=== PATIENT | male | born 1975 | race Caucasian/White ===

== ENCOUNTER 2019-10-13 11:08 | Emergency (ER) | payer MEDICAID ==
[~2019-10-13] VITALS: Ht 175.3 cm; Wt 88.0 kg
[2019-10-13 11:16] VITALS: BP 127/81
[2019-10-13] MEDS ORDERED: morphine 4 MG/ML inj SYRINge IV PRN (11:35)
[2019-10-13] MEDS ORDERED: ondansetron/PF 4mg/2ml inj IV ONE (11:35)
[2019-10-13] MEDS ORDERED: normal saline 1000ML IV soln IVB ONE (11:35)
[2019-10-13 11:55] LABS: BASOPHILS # (AUTO) 0.1 X10'3 (0-0.2); BASOPHILS % (AUTO) 0.8 % (0-1); EOSINOPHILS # (AUTO) 0.2 X10'3 (0-0.9); EOSINOPHILS % (AUTO) 1.7 % (0-6); HEMATOCRIT 42.6 % (42.0-52.0); HEMOGLOBIN 14.7 g/dl (14.0-17.9); LYMPHOCYTES # (AUTO) 2.5 X10'3 (1.1-4.8); LYMPHOCYTES % (AUTO) 27.3 % (21-51); MEAN CORPUSCULAR HEMOGLOBIN 30.8 PG (27.0-31.0); MEAN CORPUSCULAR HGB CONC 34.5 g/dL (33.0-36.5); MEAN CORPUSCULAR VOLUME 89.3 FL (78-98); MEAN PLATELET VOLUME 8.5 FL (7.4-10.4); MONOCYTES # (AUTO) 0.8 X10'3 (0-0.9); MONOCYTES % (AUTO) 8.8 % (2-12); NEUTROPHILS # (AUTO) 5.6 X10'3 (1.8-7.7); NEUTROPHILS % (AUTO) 61.4 % (42-75); PLATELET COUNT 243 X10'3 (140-440); RED BLOOD COUNT 4.77 X10'6 (4.70-6.10); RED CELL DISTRIBUTION WIDTH 13.3 % (11.5-14.5); WHITE BLOOD COUNT 9.1 X10'3 (4.5-11.0)
[2019-10-13] MEDS ORDERED: proCHLORperazine 10 MG/2 ml inj IV ONE (12:05)
[2019-10-13] MEDS ORDERED: gabapentin 300mg capsule PO ONE (12:05)
[2019-10-13 12:09] LABS: ALANINE AMINOTRANSFERASE 37 U/L (12-78); ALBUMIN 3.4 G/DL (3.4-5.0); ALKALINE PHOSPHATASE 86 IU/L (46-116); ANION GAP 7 (8-16); ASPARTATE AMINO TRANSFERASE 18 U/L (10-37); BILIRUBIN,TOTAL 0.3 MG/DL (0.1-1.0); BLOOD UREA NITROGEN 10 MG/DL (7-18); BUN/CREATININE RATIO 9.7 (5.4-32.0); CALCIUM 8.5 MG/DL (8.5-10.1); CHLORIDE 109 MMOL/L (99-107); CREATININE 1.03 MG/DL (0.60-1.10); GLUCOSE 90 MG/DL (70-104); LIPASE 122 U/L (73-393); POTASSIUM 3.6 MMOL/L (3.5-5.1); SODIUM 143 MMOL/L (135-145); TOTAL PROTEIN 6.8 G/DL (6.4-8.2); eGFR 78 ML/MIN
[2019-10-13] MEDS ORDERED: HYDROmorphone 1 mg/ml syringe IV ONE (12:25)
[2019-10-13 12:29] LABS: CLARITY,URINE CLEAR (Clear); COLOR,URINE YELLOW (Yellow); GLUCOSE, URINE NEGATIVE (Neg); KETONES,URINE NEGATIVE (Neg); LEUKOCYTE ESTERASE ,URINE NEGATIVE (Neg); NITRITES, URINE NEGATIVE (Neg); OCCULT BLOOD,URINE NEGATIVE (Neg); PROTEIN,URINE NEGATIVE (Neg); UA COLLECTION TYPE CLN CATCH MIDSTREAM; UROBILINOGEN,URINE 0.2 E.U/dL (0.2-1.0)
== END 2019-10-13 13:12 | disposition home or self-care (01) ==
LOC: ER 11:09
DX: R10.11 Right upper quadrant pain (principal); R10.12 Left upper quadrant pain; R10.31 Right lower quadrant pain; R10.32 Left lower quadrant pain
CPT/HCPCS: 36415; 74176; 80053; 81003; 83690; 85025; 93005; 96374; 96375; 99284; J0780; J1170; J2270; J2405; J7030

== ENCOUNTER 2021-04-01 17:02 | Emergency (ER) | payer MEDICAID ==
[~2021-04-01] VITALS: Ht 175.3 cm; Wt 81.3 kg
[2021-04-01 18:02] VITALS: BP 125/85
[2021-04-01 20:31] LABS: BASOPHILS # (AUTO) 0.1 X10'3 (0-0.2); EOSINOPHILS # (AUTO) 0.2 X10'3 (0-0.9); EOSINOPHILS % (AUTO) 1.9 % (0-6); HEMATOCRIT 46.2 % (42.0-52.0); LYMPHOCYTES # (AUTO) 2.9 X10'3 (1.1-4.8); LYMPHOCYTES % (AUTO) 34.8 % (21-51); MEAN CORPUSCULAR HEMOGLOBIN 31.7 PG (27.0-31.0); MEAN CORPUSCULAR HGB CONC 34.7 g/dL (33.0-36.5); MEAN CORPUSCULAR VOLUME 91.4 FL (78-98); MEAN PLATELET VOLUME 8.7 FL (7.4-10.4); MONOCYTES # (AUTO) 0.8 X10'3 (0-0.9); MONOCYTES % (AUTO) 10.2 % (2-12); NEUTROPHILS # (AUTO) 4.4 X10'3 (1.8-7.7); NEUTROPHILS % (AUTO) 52.1 % (42-75); PLATELET COUNT 229 X10'3 (140-440); RED BLOOD COUNT 5.05 X10'6 (4.70-6.10); WHITE BLOOD COUNT 8.4 X10'3 (4.5-11.0)
[2021-04-01 20:33] LABS: ALANINE AMINOTRANSFERASE 28 U/L (12-78); ALBUMIN 3.7 G/DL (3.4-5.0); ALKALINE PHOSPHATASE 81 IU/L (46-116); ANION GAP 10 (8-16); ASPARTATE AMINO TRANSFERASE 22 U/L (10-37); BILIRUBIN,TOTAL 0.4 MG/DL (0.1-1.0); BLOOD UREA NITROGEN 13 MG/DL (7-18); BUN/CREATININE RATIO 13.4 (5.4-32.0); CALCIUM 8.8 MG/DL (8.5-10.1); CHLORIDE 104 MMOL/L (99-107); CREATININE 0.97 MG/DL (0.60-1.10); GLUCOSE 96 MG/DL (70-104); LIPASE 129 U/L (73-393); POTASSIUM 4.1 MMOL/L (3.5-5.1); SODIUM 138 MMOL/L (135-145); TOTAL CARBON DIOXIDE 23.8 MMOL/L (24-32); TOTAL PROTEIN 7.5 G/DL (6.4-8.2); eGFR 83 ML/MIN
[2021-04-01 20:43] LABS: CLARITY,URINE CLEAR (Clear); COLOR,URINE YELLOW (Yellow); GLUCOSE, URINE NEGATIVE (Neg); KETONES,URINE TRACE mg/dl (Neg); LEUKOCYTE ESTERASE ,URINE NEGATIVE (Neg); NITRITES, URINE NEGATIVE (Neg); OCCULT BLOOD,URINE NEGATIVE (Neg); PROTEIN,URINE NEGATIVE (Neg); UROBILINOGEN,URINE 0.2 E.U/dL (0.2-1.0)
[2021-04-01 20:55] LABS: UA COLLECTION TYPE CLN CATCH MIDSTREAM
[2021-04-01] MEDS ORDERED: LIDOcaine Viscous 15ml cup MM ONE (21:25)
[2021-04-01] MEDS ORDERED: mag hydrox/Alum hydrox/simeth 30ml oral suspension PO ONE (21:25)
[2021-04-01] MEDS ORDERED: sucralfate 1gm/10ml UD suspension PO STA (21:25)
[2021-04-01] MEDS ORDERED: DEXL30CA3 PO (21:37)
[2021-04-01] MEDS ORDERED: SUCR1TAB34 PO (21:37)
== END 2021-04-01 22:10 | disposition home or self-care (01) ==
LOC: ER 17:03
DX: R10.84 Generalized abdominal pain (principal); R53.83 Other fatigue; R50.9 Fever, unspecified; R11.0 Nausea; M54.5 Low back pain; G89.29 Other chronic pain; Z79.899 Other long term (current) drug therapy
CPT/HCPCS: 36415; 80053; 81003; 83690; 85025; 99284

== ENCOUNTER 2021-12-13 00:55 | Inpatient (IN) | payer MEDICAID ==
[~2021-12-13] VITALS: Ht 175.3 cm; Wt 79.5 kg
[~2021-12-13 00:55] MED LIST: DEXL30CA3 PO; SUCR1TAB34 PO
--- NOTE | 2021-12-13 01:12 | NUR ---
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 OF NOW HE IS NOW AT A 5/10
--- NOTE | 2021-12-13 01:13 | NUR ---
XRAY AT BEDSIDE
--- NOTE | 2021-12-13 01:13 | NUR ---
BLOOD SENT TO LAB
[2021-12-13] MEDS ORDERED: aspirin 325mg tablet PO ONE (01:35)
[2021-12-13 01:36] LABS: BASOPHILS # (AUTO) 0.1 X10'3 (0-0.2); BASOPHILS % (AUTO) 1.2 % (0-1); EOSINOPHILS # (AUTO) 0.1 X10'3 (0-0.9); EOSINOPHILS % (AUTO) 1.2 % (0-6); HEMATOCRIT 43.1 % (42.0-52.0); HEMOGLOBIN 15.3 g/dl (14.0-17.9); LYMPHOCYTES # (AUTO) 3.6 X10'3 (1.1-4.8); LYMPHOCYTES % (AUTO) 33.4 % (21-51); MEAN CORPUSCULAR HEMOGLOBIN 31.2 PG (27.0-31.0); MEAN CORPUSCULAR HGB CONC 35.4 g/dL (33.0-36.5); MEAN CORPUSCULAR VOLUME 88.1 FL (78-98); MONOCYTES # (AUTO) 1.2 X10'3 (0-0.9); MONOCYTES % (AUTO) 11.4 % (2-12); NEUTROPHILS # (AUTO) 5.6 X10'3 (1.8-7.7); NEUTROPHILS % (AUTO) 52.8 % (42-75); PLATELET COUNT 239 X10'3 (140-440); RED BLOOD COUNT 4.89 X10'6 (4.70-6.10); RED CELL DISTRIBUTION WIDTH 13.1 % (11.5-14.5); WHITE BLOOD COUNT 10.7 X10'3 (4.5-11.0)
[2021-12-13 01:43] LABS: ALANINE AMINOTRANSFERASE 28 U/L (12-78); ALBUMIN 3.9 G/DL (3.4-5.0); ALBUMIN/GLOBULIN RATIO 1.1 (1.1-1.5); ALKALINE PHOSPHATASE 87 IU/L (46-116); ANION GAP 10 (8-16); ASPARTATE AMINO TRANSFERASE 22 U/L (10-37); BILIRUBIN,TOTAL 0.4 MG/DL (0.1-1.0); BLOOD UREA NITROGEN 17 MG/DL (7-18); BUN/CREATININE RATIO 16.7 (5.4-32.0); CHLORIDE 103 MMOL/L (99-107); CREATININE 1.02 MG/DL (0.60-1.10); GLUCOSE 101 MG/DL (70-104); POTASSIUM 3.6 MMOL/L (3.5-5.1); SODIUM 136 MMOL/L (135-145); TOTAL CARBON DIOXIDE 22.6 MMOL/L (24-32); TOTAL PROTEIN 7.6 G/DL (6.4-8.2); eGFR 78 ML/MIN
[2021-12-13 01:52] LABS: MAGNESIUM 1.8 MG/DL (1.5-2.4)
--- NOTE | 2021-12-13 02:30 | NUR ---
ASSUMED CARE OF PATIENT. A+OX4. SKIN WARM AND DRY. ADMITTED AND AWAITING ROOM, 3RD TROP IN 3HRS.
[2021-12-13] MEDS ORDERED: morphine 2 MG/ML inj. syringe IV PRN (03:30)
[2021-12-13] MEDS ORDERED: potassium Cl 20 mEq SR tablet PO PRN ×2 (03:30)
[2021-12-13] MEDS ORDERED: magnesium 4gm in 100ml NS 100 ML IV PRN (03:30)
[2021-12-13] MEDS ORDERED: ondansetron/PF 4mg/2ml inj IV PRN (03:30)
[2021-12-13] MEDS ORDERED: potassium CL 10mEq/100ml bag 100 ML IV PRN (03:30)
[2021-12-13] MEDS ORDERED: HYDROcodone/acetaminophen 5mg/325mg tablet PO PRN (03:30)
[2021-12-13] MEDS ORDERED: mag hydrox/Alum hydrox/simeth 30ml oral suspension PO PRN (03:30)
[2021-12-13] MEDS ORDERED: acetaminophen 325mg tablet PO PRN ×2 (03:30)
[2021-12-13] MEDS ORDERED: magnesium 2GM in 50ml NS 50 ML IV PRN (03:30)
[2021-12-13] MEDS ORDERED: magnesium Cl slow-release 64mg tablet PO PRN (03:30)
--- NOTE | 2021-12-13 04:00 | NUR ---
PATIENT ASLEEP IN ROOM, CHEST RISE AND FALL, STILL AWAITING ROOM AND ORDERS. HOSPITALIST SEEING PATIENT NOW
[2021-12-13] MEDS ORDERED: CefTRIAXone 2gm/D5W 50ml BAG 50 ML IV ONE (04:30)
[2021-12-13] MEDS: K and/or MAG REPLACEMENT MC SCH ×2 (07:57→20:00)
--- NOTE | 2021-12-13 08:30 | NUR ---
Pt not going to have Blanca scan until tomorrow per Nuc Med tech. Hospitalist paged for diet order.
[2021-12-13] MEDS: normal saline 1000ml 1,000 ML IV SCH ×2 (08:31→17:48)
[2021-12-13] MEDS: heparin, porcine 5000 units/ml vial SQ SCH ×2 (08:32→20:00)
--- NOTE | 2021-12-13 11:01 | NUR ---
DR. PEREZ CALLED, BONIFACIO INFORMED HIM LEXISCAN CANNOT BE DONE TODAY. NEW ORDERS: HEART HEALTHY DIET, NPO AFTER MN FOR LEXISCAN TOMORROW.
[2021-12-13 12:26] LABS: CLARITY,URINE CLEAR (Clear); COLOR,URINE YELLOW (Yellow); GLUCOSE, URINE NEGATIVE (Neg); KETONES,URINE TRACE mg/dl (Neg); LEUKOCYTE ESTERASE ,URINE NEGATIVE (Neg); NITRITES, URINE NEGATIVE (Neg); OCCULT BLOOD,URINE NEGATIVE (Neg); PROTEIN,URINE NEGATIVE (Neg); UROBILINOGEN,URINE 0.2 E.U/dL (0.2-1.0)
[2021-12-13 12:29] LABS: UA COLLECTION TYPE CLN CATCH MIDSTREAM
[2021-12-13 12:38] LABS: URINE AMPHETAMINE SCREEN NEGATIVE (Neg); URINE BARBITUATE SCREEN NEGATIVE (Neg); URINE BENZODIAZEPINES SCREEN NEGATIVE (Neg); URINE CANNABINOID SCREEN POSITIVE (Neg); URINE COCAINE SCREEN NEGATIVE (Neg); URINE METHADONE SCREEN NEGATIVE (Neg); URINE OPIATE SCREEN NEGATIVE (Neg); URINE PHENCYCLIDINE SCREEN NEGATIVE (Neg)
[2021-12-13] MEDS ORDERED: IBUP-1985 PO (13:06)
[2021-12-13] MEDS ORDERED: OMEP20CA16 PO (13:06)
[2021-12-13 16:19] VITALS: BP 112/67
--- NOTE | 2021-12-13 16:31 | NUR ---
Patient admitted from ER accompanied by 2 nurses. Patient AAOx4. no distress noted at this time , patient denied pain at this moment. VS at normal range.
--- NOTE | 2021-12-13 18:59 | NUR ---
Patient in room MED 312. I have received report from Rubi GAINES and had the opportunity to ask questions and assume patient care. Addendum: 12/13/21 at 1900 by Stephanie Miramontes RN Amended: Links added.
--- NOTE | 2021-12-13 19:45 | NUR ---
Problems reprioritized. Patient report given, questions answered & plan of care reviewed with LIANA GUILLERMO
[2021-12-13 20:00] VITALS: BP 100/64
[2021-12-13] MEDS ORDERED: temazepam 15mg capsule PO PRN (21:00)
[2021-12-13 22:00] VITALS: BP 101/68
[2021-12-14] VITALS (12 sets, daily range): BP systolic 102–127; BP diastolic 57–77
[2021-12-14] MEDS: normal saline 1000ml 1,000 ML IV SCH ×2 (03:01→19:03)
[2021-12-14 06:22] LABS: BASOPHILS # (AUTO) 0.1 X10'3 (0-0.2); EOSINOPHILS # (AUTO) 0.1 X10'3 (0-0.9); MEAN CORPUSCULAR HEMOGLOBIN 31.1 PG (27.0-31.0); MEAN CORPUSCULAR HGB CONC 34.8 g/dL (33.0-36.5); MEAN PLATELET VOLUME 8.7 FL (7.4-10.4); MONOCYTES # (AUTO) 0.6 X10'3 (0-0.9); MONOCYTES % (AUTO) 11.5 % (2-12); PLATELET COUNT 203 X10'3 (140-440)
[2021-12-14 06:25] LABS: BASOPHILS % (AUTO) 1.1 % (0-1); EOSINOPHILS % (AUTO) 1.8 % (0-6); HEMOGLOBIN 14.6 g/dl (14.0-17.9); LYMPHOCYTES # (AUTO) 1.8 X10'3 (1.1-4.8); LYMPHOCYTES % (AUTO) 33.1 % (21-51); MEAN CORPUSCULAR VOLUME 89.6 FL (78-98); NEUTROPHILS # (AUTO) 2.9 X10'3 (1.8-7.7); NEUTROPHILS % (AUTO) 52.5 % (42-75); RED BLOOD COUNT 4.69 X10'6 (4.70-6.10); RED CELL DISTRIBUTION WIDTH 13.1 % (11.5-14.5); WHITE BLOOD COUNT 5.6 X10'3 (4.5-11.0)
--- NOTE | 2021-12-14 06:50 | NUR ---
Problems reprioritized. Patient report given, questions answered & plan of care reviewed with Justin GAINES. Addendum: 12/14/21 at 0716 by Stephanie Miramontes RN Amended: Links added.
[2021-12-14] MEDS: pantoprazole 40mg Tablet.DR PO SCH ×3 (07:16→20:30)
[2021-12-14] MEDS: heparin, porcine 5000 units/ml vial SQ SCH (07:17)
[2021-12-14] MEDS: K and/or MAG REPLACEMENT MC SCH ×2 (08:00→20:00)
[2021-12-14 08:35] LABS: ALANINE AMINOTRANSFERASE 25 U/L (12-78); ALBUMIN 3.2 G/DL (3.4-5.0); ALBUMIN/GLOBULIN RATIO 0.9 (1.1-1.5); ALKALINE PHOSPHATASE 73 IU/L (46-116); ASPARTATE AMINO TRANSFERASE 23 U/L (10-37); BILIRUBIN,TOTAL 0.6 MG/DL (0.1-1.0); BLOOD UREA NITROGEN 11 MG/DL (7-18); BUN/CREATININE RATIO 13.4 (5.4-32.0); CALCIUM 8.8 MG/DL (8.5-10.1); CREATININE 0.82 MG/DL (0.60-1.10); GLUCOSE 104 MG/DL (70-104); LDL CHOLESTEROL 166 MG/DL (50-100); TOTAL CARBON DIOXIDE 23.5 MMOL/L (24-32); TOTAL PROTEIN 6.6 G/DL (6.4-8.2); TRIGLYCERIDES 142 MG/DL (20-135); eGFR > 90 ML/MIN
[2021-12-14 08:42] LABS: CHOLESTEROL 242 MG/DL (0-200)
[2021-12-14 08:43] LABS: CHOL/HDL RATIO 6.2 (0.00-4.99); HDL CHOLESTEROL 39 MG/DL (35-60)
[2021-12-14] MEDS ORDERED: metoprolol tartrate 1mg/ml inj IV PRN (09:00)
[2021-12-14] MEDS ORDERED: regadenoson 0.4mg/5ml syringe IV PRN (09:00)
[2021-12-14] MEDS ORDERED: nitroGLYCERIN 0.4mg SUBLingual tab SL PRN (09:00)
[2021-12-14] MEDS ORDERED: aminophylline 250mg/10ml inj. IV PRN (09:00)
[2021-12-14 12:18] LABS: POTASSIUM 4.8 MMOL/L (3.3-5.1)
[2021-12-14] MEDS: nicotine 14mg patch - 24hr TD SCH (15:05)
[2021-12-14] MEDS: atorvastatin 20mg tablet PO SCH (20:31)
[2021-12-14] MEDS: enoxaparin 80mg/0.8ml syringe SUBCUT SCH (20:42)
[2021-12-15] VITALS (11 sets, daily range): BP systolic 105–129; BP diastolic 57–82
--- NOTE | 2021-12-15 01:53 | NUR ---
Patient C/O having chest pain earlier in the shift and was medicated. He stated that his pain was better. At 0000 the patient then C/O being short of breath while sleeping although his sats were between 96% and 95% on room air. Patient placed on O2 2L per nasal cannula and says he feels a lot better at this time. Patient has been NPO since 0000 per am procedure and has been compliant with his care. No other complaints voiced. Will continue to monitor.
--- NOTE | 2021-12-15 06:09 | NUR ---
Problems reprioritized. Patient report given, questions answered & plan of care reviewed with Vik GAINES.
[2021-12-15 07:14] LABS: BASOPHILS # (AUTO) 0.1 X10'3 (0-0.2); BASOPHILS % (AUTO) 1.2 % (0-1); EOSINOPHILS # (AUTO) 0.1 X10'3 (0-0.9); EOSINOPHILS % (AUTO) 1.5 % (0-6); HEMATOCRIT 42.6 % (42.0-52.0); HEMOGLOBIN 14.6 g/dl (14.0-17.9); LYMPHOCYTES % (AUTO) 29.8 % (21-51); MEAN CORPUSCULAR HEMOGLOBIN 31.1 PG (27.0-31.0); MEAN CORPUSCULAR HGB CONC 34.2 g/dL (33.0-36.5); MEAN CORPUSCULAR VOLUME 90.9 FL (78-98); MEAN PLATELET VOLUME 9.4 FL (7.4-10.4); MONOCYTES # (AUTO) 0.8 X10'3 (0-0.9); MONOCYTES % (AUTO) 11.4 % (2-12); NEUTROPHILS # (AUTO) 3.7 X10'3 (1.8-7.7); NEUTROPHILS % (AUTO) 56.1 % (42-75); PLATELET COUNT 199 X10'3 (140-440); RED BLOOD COUNT 4.69 X10'6 (4.70-6.10); RED CELL DISTRIBUTION WIDTH 13.5 % (11.5-14.5); WHITE BLOOD COUNT 6.6 X10'3 (4.5-11.0)
[2021-12-15 07:31] LABS: ALANINE AMINOTRANSFERASE 23 U/L (12-78); ALBUMIN 3.3 G/DL (3.4-5.0); ALKALINE PHOSPHATASE 75 IU/L (46-116); ANION GAP 8 (8-16); ASPARTATE AMINO TRANSFERASE 19 U/L (10-37); BILIRUBIN,TOTAL 0.5 MG/DL (0.1-1.0); BLOOD UREA NITROGEN 12 MG/DL (7-18); CALCIUM 8.7 MG/DL (8.5-10.1); CHLORIDE 105 MMOL/L (99-107); CREATININE 0.86 MG/DL (0.60-1.10); GLUCOSE 102 MG/DL (70-104); POTASSIUM 4.1 MMOL/L (3.5-5.1); SODIUM 137 MMOL/L (135-145); TOTAL CARBON DIOXIDE 23.7 MMOL/L (24-32); TOTAL PROTEIN 6.5 G/DL (6.4-8.2); eGFR > 90 ML/MIN
[2021-12-15] MEDS: K and/or MAG REPLACEMENT MC SCH ×2 (08:00→19:19)
[2021-12-15] MEDS: nicotine 14mg patch - 24hr TD SCH (08:51)
[2021-12-15] MEDS: atorvastatin 20mg tablet PO SCH (08:51)
[2021-12-15] MEDS: pantoprazole 40mg Tablet.DR PO SCH ×2 (08:51→20:23)
[2021-12-15] MEDS: enoxaparin 80mg/0.8ml syringe SUBCUT SCH ×2 (08:52→20:24)
[2021-12-15] MEDS: normal saline 1000ml 1,000 ML IV SCH ×2 (12:42→19:55)
[2021-12-15] MEDS ORDERED: nitroGLYCERIN-Tridil 50MG/D5W 250 ML IV ONE (16:23)
[2021-12-15] MEDS ORDERED: fentaNYL/PF 50MCG/1 ML 2ML syringe ONE (16:24)
[2021-12-15] MEDS ORDERED: midazolam 1 mg/ML 2ml injection ONE (16:24)
[2021-12-15] MEDS ORDERED: iohexol 350MG/ML 100ml bottle IV ONE (16:24)
[2021-12-15] MEDS ORDERED: verapamil 2.5 mg/ml inj IV ONE (16:24)
[2021-12-15] MEDS ORDERED: heparin 1,000unit/ml 10ml vial 10 ML ONE (16:24)
[2021-12-15] MEDS ORDERED: LIDOcaine 1% (10mg/ml)w/preservative injection 20ml MDV ONE (16:24)
--- NOTE | 2021-12-15 19:10 | NUR ---
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
--- NOTE | 2021-12-15 20:00 | NUR ---
Patient came back from [facility] in a stable condition vital signs stable no signs of distress noted will continue to monitor and report changes
[2021-12-16] VITALS: BP 105/69
[2021-12-16 02:00] VITALS: BP 105/60
[2021-12-16] MEDS: normal saline 1000ml 1,000 ML IV SCH ×2 (03:00→06:21)
[2021-12-16 06:11] LABS: BASOPHILS # (AUTO) 0.1 X10'3 (0-0.2); BASOPHILS % (AUTO) 0.9 % (0-1); EOSINOPHILS # (AUTO) 0.1 X10'3 (0-0.9); EOSINOPHILS % (AUTO) 1.8 % (0-6); HEMATOCRIT 41.5 % (42.0-52.0); HEMOGLOBIN 14.2 g/dl (14.0-17.9); LYMPHOCYTES # (AUTO) 1.9 X10'3 (1.1-4.8); MEAN CORPUSCULAR HEMOGLOBIN 30.8 PG (27.0-31.0); MEAN CORPUSCULAR HGB CONC 34.3 g/dL (33.0-36.5); MEAN CORPUSCULAR VOLUME 89.9 FL (78-98); MONOCYTES # (AUTO) 0.8 X10'3 (0-0.9); MONOCYTES % (AUTO) 12.6 % (2-12); NEUTROPHILS # (AUTO) 3.4 X10'3 (1.8-7.7); NEUTROPHILS % (AUTO) 54.7 % (42-75); PLATELET COUNT 210 X10'3 (140-440); RED BLOOD COUNT 4.61 X10'6 (4.70-6.10); RED CELL DISTRIBUTION WIDTH 13.2 % (11.5-14.5); WHITE BLOOD COUNT 6.2 X10'3 (4.5-11.0)
--- NOTE | 2021-12-16 06:23 | NUR ---
Problems reprioritized. Patient report given, questions answered & plan of care reviewed with Pako GAINES .
[2021-12-16 06:56] LABS: ALANINE AMINOTRANSFERASE 25 U/L (12-78); ALBUMIN 3.1 G/DL (3.4-5.0); ALBUMIN/GLOBULIN RATIO 0.9 (1.1-1.5); ALKALINE PHOSPHATASE 72 IU/L (46-116); ANION GAP 11 (8-16); ASPARTATE AMINO TRANSFERASE 18 U/L (10-37); BILIRUBIN,TOTAL 0.4 MG/DL (0.1-1.0); BLOOD UREA NITROGEN 13 MG/DL (7-18); BUN/CREATININE RATIO 14.6 (5.4-32.0); CALCIUM 8.3 MG/DL (8.5-10.1); CHLORIDE 106 MMOL/L (99-107); CREATININE 0.89 MG/DL (0.60-1.10); GLUCOSE 91 MG/DL (70-104); POTASSIUM 4.1 MMOL/L (3.5-5.1); SODIUM 140 MMOL/L (135-145); TOTAL CARBON DIOXIDE 23.2 MMOL/L (24-32); TOTAL PROTEIN 6.4 G/DL (6.4-8.2); eGFR > 90 ML/MIN
[2021-12-16 07:01] VITALS: BP 106/75
[2021-12-16] MEDS: atorvastatin 20mg tablet PO SCH (07:36)
[2021-12-16] MEDS: enoxaparin 80mg/0.8ml syringe SUBCUT SCH (07:37)
[2021-12-16] MEDS: nicotine 14mg patch - 24hr TD SCH (07:37)
[2021-12-16] MEDS: pantoprazole 40mg Tablet.DR PO SCH (07:37)
[2021-12-16] MEDS ORDERED: NICO-631 TD (08:58)
[2021-12-16] MEDS ORDERED: ATOR40TA PO (08:58)
--- NOTE | 2021-12-16 11:00 | NUR ---
Patient discharge home alert and orient , discharge orders was discussed.
== END 2021-12-16 10:44 | disposition home or self-care (01) | DRG 192 ==
LOC: ER 00:56 → ED HOLD 03:33 → MED 3N 15:52
PROVIDERS: ADMIT Internal Medicine; ATTEND Family Medicine
PROC: 4A02XM4 Measurement of Cardiac Total Activity, External Approach (ICD-10-PCS; 2021-12-14)
PROC: 3E033HZ Introduction of Radioactive Substance into Peripheral Vein, Percutaneous Approach (ICD-10-PCS; 2021-12-14)
PROC: 4A023N7 Measurement of Cardiac Sampling and Pressure, Left Heart, Percutaneous Approach (ICD-10-PCS; principal; 2021-12-15)
PROC: B2111ZZ Fluoroscopy of Multiple Coronary Arteries using Low Osmolar Contrast (ICD-10-PCS; 2021-12-15)
PROC: B2151ZZ Fluoroscopy of Left Heart using Low Osmolar Contrast (ICD-10-PCS; 2021-12-15)
DX: M94.0 Chondrocostal junction syndrome [Tietze] (principal); E78.00 Pure hypercholesterolemia, unspecified; Z20.822 Contact with and (suspected) exposure to COVID-19; I20.9 Angina pectoris, unspecified; E78.5 Hyperlipidemia, unspecified; F12.90 Cannabis use, unspecified, uncomplicated; F17.290 Nicotine dependence, other tobacco product, uncomplicated; M54.9 Dorsalgia, unspecified; G40.909 Epilepsy, unspecified, not intractable, without status epilepticus; G89.29 Other chronic pain; Z82.49 Family history of ischemic heart disease and other diseases of the circulatory system; Z88.0 Allergy status to penicillin; Z79.899 Other long term (current) drug therapy; Z71.6 Tobacco abuse counseling
CPT/HCPCS: 36415; 71045; 78452; 80053; 80061; 80305; 81003; 83735; 83880; 84484; 85025; 87081; 87635; 93005; 93017; 93306; 93458; 99152; 99285; A4620; A5120; A9500; C1769; C1894; G0378; J0696; J1644; J1650; J2250; J2270; J2785; J3010; J3490; J7030; Q9967

== ENCOUNTER 2025-03-15 11:58 | Emergency (ER) | payer MEDICAID ==
[~2025-03-15] VITALS: Ht 175.3 cm; Wt 81.2 kg
[~2025-03-15 11:58] MED LIST changes: +ATOR40TA PO; -DEXL30CA3 PO; +IBUP-1985 PO; +NICO-631 TD; +OMEP20CA16 PO; -SUCR1TAB34 PO
--- NOTE | 2025-03-15 12:09 | Physician Documentation ---
History of Present Illness ~ Chief Complaint: See Chief Complaint Stated Complaint: POSS HEAT RELATED COMPLICATIONS Time Seen by MD: 12:07 OK to notify your PCP?: Yes Primary Medical Doctor: dusty olson Source: patient, family, RN notes reviewed Mode of Arrival: POV Exam Limitations: no limitations HPI 49 year old male with history of heat stroke and seizures seen in bed 15 presents to the emergency department for complaints of heat exhaustion. After working in the sun yesterday at 1400 he had began shaking uncontrollably. Additionally there were complaints of not being able to open his left eye. Patient was sweating profusely and drooling with some confusion. He went to bed around 1700 yesterday and woke up with only a slight tremor and reported feeling normal. Patient denies any other associated symptoms at this time. Patient denies any other alleviating or exacerbating factors. Medication Reconciliation Allergies: Uncoded Allergies: PCN (Allergy, Unknown, 10/13/19) Scheduled Atorvastatin Calcium* (Lipitor*), 1 TAB PO DAILY Nicotine 14 MG Patch* (Habitrol 14 MG Patch*), 1 PATCH TD DAILY Omeprazole (Omeprazole), 1 CAP PO BID, (Reported) Tadalafil* (Cialis*), 1 TAB PO DAILY Scheduled PRN Ibuprofen (Ibuprofen), 1 TAB PO DAILY PRN for pain, (Reported) Past Medical History Past Medical History: Seizures, Chronic Pain Past Surgical History: noncontributory Drug Use: none Lives In: Home Review of Systems All Other Systems at this time: Reviewed and Negative ROS As stated above in the HPI, otherwise all systems are reviewed and negative. Physical Exam Vital Signs: RN Vital Signs have been reviewed: Yes, Temperature: 98.4, Source: Oral, Heart Rate: 68, Respiratory Rate: 16, BP: 130/87, Pulse Oximetry: 97, Weight: 81.200 Oxygen Flow Rate: 0 Pulse Oximetry Reflects: adequate oxygenation Physical Exam General: The patient is well developed, well nourished, nontoxic appearing and is in no acute distress. Skin: [place], warm and dry with no rashes. HEENT: Head was normocephalic and atraumatic. Eyes - pupils equal, round, reactive to light and accommodation. Extraocular movements were intact. Conjunctivae were nonicteric. Ears - bilateral tympanic membranes were normal. The mouth and oropharynx were clear with moist mucous membranes. There were no pharyngeal exudates or erythema. Neck: Supple and nontender. There was no jugular venous distention, lymphadenopathy, thyromegaly or masses. Chest: Clear to auscultation bilaterally without wheezes, rales or rhonchi. No accessory muscle use. No dullness to percussion. Heart: Rate regular and rhythmic. S1, S2. No murmurs. Palpation of the chest wall was normal. No rubs or thrills. Abdomen: Soft, nontender and nondistended. Positive bowel sounds. No guarding or rebound. No hepatosplenomegaly or palpable masses. Extremities: No cyanosis, clubbing or edema. The patient moves all extr emities. Pulses were equal and symmetric. Neurologic: Cranial nerves II-XII were intact. Sensation was intact to light touch throughout. Motor strength was 5/5 in all four extremities. Deep tendon reflexes were intact in both upper and lower extremities. Psychologic: The patient was oriented to person, place and time. The patient demonstrated appropriate judgement and insight. Progress Results/Orders Reviewed/noted all lab results: Yes Results/Orders Orders - RAMÍREZ MCKEON MD Electrocardiogram (03/15/25 12:09) Chest,Single View (03/15/25 12:09) Completed Orders - RAMÍREZ MCKEON MD Electrocardiogram (03/15/25 12:09) Cbc/Diff (03/15/25 12:09) MG (03/15/25 12:09) Urinalysis, Cult If Indicated (03/15/25 12:09) Chest,Single View (03/15/25 12:09) Normal Saline 1000ml (Sodium Chloride 10 (03/15/25 12:10) Procalcitonin (03/15/25 12:09) BMP (03/15/25 12:09) Lipase (03/15/25 12:09) Ethanol (03/15/25 12:09) Myoglobin (03/15/25 12:09) CK (03/15/25 12:09) Drug Screen, Urine (03/15/25 12:09) Hs Troponin I W Calculations (03/15/25 12:09) Vital Signs 03/15/25 03/15/25 03/15/25 03/15/25 12:00 12:34 12:34 13:35 Temp 98.4 Pulse 68 67 61 Resp 16 17 18 18 B/P (MAP) 130/87 124/76 (92) 130/82 (98) Pulse Ox 97 97 98 O2 Flow Rate 0 0 0 03/15/25 14:32 Temp 98.4 Pulse 67 Resp 16 B/P (MAP) 116/86 Pulse Ox 98 Laboratory Tests Test 03/15/25 12:18 03/15/25 13:45 White Blood Count 8.9 Red Blood Count 5.06 Hemoglobin 15.5 Hematocrit 45.6 Mean Corpuscular Volume 90.0 Mean Corpuscular Hemoglobin 30.7 Mean Corpuscular Hemoglobin Concent 34.1 Red Cell Distribution Width 13.8 Platelet Count 289 Mean Platelet Volume 8.2 Neutrophils (%) (Auto) 63.3 Lymphocytes (%) (Auto) 26.6 Monocytes (%) (Auto) 8.2 Eosinophils (%) (Auto) 1.0 Basophils (%) (Auto) 0.9 Neutrophils # (Auto) 5.7 Lymphocytes # (Auto) 2.4 Monocytes # (Auto) 0.7 Eosinophils # (Auto) 0.1 Basophils # (Auto) 0.1 CBC Comment Sodium Level 144 Potassium Level 4.1 Chloride Level 103 Carbon Dioxide Level 29.3 Anion Gap 12 Blood Urea Nitrogen 7 Creatinine 1.01 Estimated GFR/1.73 m2 78 BUN/Creatinine Ratio 6.9 L Glucose Level 95 Calcium Level 9.1 Magnesium Level 2.0 Total Creatine Kinase 297 Myoglobin 77.0 Troponin I High Sensitivity 5 Albumin 3.5 Lipase 36 Procalcitonin < 0.05 Chemistry Comments Ethyl Alcohol Level < 10 Urine Specimen Description Non-specified Urine Color Yellow Urine Clarity Clear Urine pH 6.0 Urine Specific [place] 1.015 Urine Protein Negative Urine Glucose (UA) Negative Urine Ketones 15 H Urine Occult Blood Negative Urine Nitrite Negative Urine Bilirubin Negative Urine Urobilinogen 0.2 Urine Leukocyte Esterase Negative Urine Culture Indicated Not ind Volume Urine Centrifuged 10 ml Urine Comment Urine Opiates Screen Negative Urine Methadone Screen Negative Urine Fentanyl Screen Negative Urine Barbiturates Screen Negative Urine Phencyclidine Screen Negative Urine Amphetamines Screen Negative Urine Benzodiazepines Screen Negative Urine Cocaine Screen Negative Urine Cannabinoids Screen Positive Drug Screen Comment Re-Evaluation Re-Evaluation : Re-Evaluation: Improved Progress Patient was seen and examined. Patient is given reassurance. Patient had what appears to be a near syncopal episode heat exposure as well very hot. Had a mild tremor. Questionable seizure-like activity however there was no postictal. Patient is feeling much better now that he is in a cool environment at the bedside. Patient was worked up. Chemistry was within normal limits no signs of any dehydration troponin is negative procalcitonin negative unlikely to be infectious etiology. Tox screen is positive for marijuana but negative for alcohol or any other drugs. Urinalysis shows a specific gravity of 1.015 and within normal limits finally urinalysis is within normal limits without any signs of infection left shift or leukocytosis. Patient's x-ray was negative for cardiomegaly or any infiltrates or effusion. Negative cardiomegaly to suggest cardiovascular etiologies cardiac arrhythmias was considered but none were seen. Patient was placed on a monitor which was within normal limits. Patient did received 2 L of fluids for his initial heat exposure. He is feeling much better at time of discharge. Continuous diagnostic cardiac sonographer interpretation shows normal sinus rhythm heart rate 60s, no ectopy, normal, my interpretation. Pulse oximetry monitor interpretation shows normal oxygenation 98% room air, normal, my interpretation. 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 Ramírez Mckeon Measurements Intervals [place] Rate: 68 P: 61 [place]: 140 QRS: 83 QRSD: 95 T: 30 QT: 375 QTc: 399 Interpretive Statements Sinus rhythm Borderline right axis deviation Abnormal inferior Q waves Electronically Signed On 03-15-2025 15:16:[address] Ramírez Mckeon Please click the below link to view image of tracing. EKG Date and Time:03/15/25 1213 Electronically Signed by: RAMÍREZ MCKEON MD Date and Time: 03/15/25 1516 Chest X-Ray : Additional Comments EXAM: DI CHEST,SINGLE VIEW Indication: SEPSIS Technique: Single frontal view of the chest was obtained Comparison: CHEST,SINGLE VIEW on DOS: 12/13/21 FINDINGS: Lines and Tubes: None Lungs: No focal consolidation. Pleura: No effusion. No pneumothorax. Cardiomediastinal contours: Unremarkable Bones: No acute osseous abnormality. IMPRESSION: No acute cardiopulmonary disease. Electronically Signed by:RAZIA JERRY MD Date & Time: 03/15/25 1235 Heart Score: Heart Score Response (Comments) Value History Slightly Suspicious 0 EKG Normal 0 Age 45-64 1 Risk Factors 1 or 2 risk factors 1 Troponin Normal limit 0 Total 2 Medical Decision Making Additional info obtained from: old records Differential Dx:Considerations: Include: dehydration, Delirium Tr., DKA, encephalopathy, hypercalcemia, hypoglycemia, hypernatremia, hyponatremia, postictal, drug overdose, ETOH intoxication, medication toxicity, infection - meningitis, infection - sepsis, infection - UTI, hyperthermia, other Departure Time of Disposition: 14:12 Disposition: 01 HOME / SELF CARE / HOMELESS Impression: Primary Impression: Heat exhaustion Qualified Codes: T67.5XXA - Heat exhaustion, unspecified, initial encounter Condition: Stable Discharge Instructions: Heat Exhaustion Referrals: NO PRIMARY CARE PROVIDER (PCP) Prescriptions Tadalafil* (Cialis*) 5 Mg Tablet 1 TAB PO DAILY for erectile dysfunction for 30 Days, #30 TAB Prov: RAMÍREZ MCKEON MD 03/15/25 Education Educated: Patient, Family Educated regarding: diagnosis, treatment, prognosis Signature Scribe Signature: Scribed for Ramírez Mckeon MD by Jimena Nevarez . 03/15/25 14:11 Attestation: The note accurately reflects work and decisions made by me.Ramírez Mckeon MD 03/15/25 12:09 RAMÍREZ MCKEON MD Mar 15, 2025 12:09 JIMENA GAMBLE Mar 15, 2025 14:12
--- NOTE | 2025-03-15 12:16 | ELECTROCARDIOGRAPH REPORT ---
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 Janet Singleton Measurements Intervals [place] Rate: 68 P: 61 [place]: 140 QRS: 83 QRSD: 95 T: 30 QT: 375 QTc: 399 Interpretive Statements Sinus rhythm Borderline right axis deviation Abnormal inferior Q waves Electronically Signed On 03-15-2025 15:16:[address] Janet Singleton Please click the below link to view image of tracing.
[2025-03-15] MEDS: normal saline 1000ML IV soln IV ONE (12:34)
[2025-03-15 12:36] LABS: BASOPHILS # (AUTO) 0.1 X10'3 (0-0.2); BASOPHILS % (AUTO) 0.9 % (0-1); EOSINOPHILS # (AUTO) 0.1 X10'3 (0-0.9); HEMATOCRIT 45.6 % (42.0-52.0); HEMOGLOBIN 15.5 g/dl (14.0-17.9); LYMPHOCYTES # (AUTO) 2.4 X10'3 (1.1-4.8); LYMPHOCYTES % (AUTO) 26.6 % (21-51); MEAN CORPUSCULAR HEMOGLOBIN 30.7 PG (27.0-31.0); MEAN CORPUSCULAR HGB CONC 34.1 g/dL (33.0-36.5); MEAN PLATELET VOLUME 8.2 FL (7.4-10.4); MONOCYTES # (AUTO) 0.7 X10'3 (0-0.9); MONOCYTES % (AUTO) 8.2 % (2-12); NEUTROPHILS # (AUTO) 5.7 X10'3 (1.8-7.7); NEUTROPHILS % (AUTO) 63.3 % (42-75); PLATELET COUNT 289 X10'3 (140-440); RED BLOOD COUNT 5.06 X10'6 (4.70-6.10); RED CELL DISTRIBUTION WIDTH 13.8 % (11.5-14.5); WHITE BLOOD COUNT 8.9 X10'3 (4.5-11.0)
--- NOTE | 2025-03-15 12:37 | RADIOLOGY REPORT ---
EXAM: DI CHEST,SINGLE VIEW Indication: SEPSIS Technique: Single frontal view of the chest was obtained Comparison: CHEST,SINGLE VIEW on DOS: 12/13/21 FINDINGS: Lines and Tubes: None Lungs: No focal consolidation. Pleura: No effusion. No pneumothorax. Cardiomediastinal contours: Unremarkable Bones: No acute osseous abnormality. IMPRESSION: No acute cardiopulmonary disease.
[2025-03-15 13:01] LABS: ALBUMIN 3.5 G/DL (3.4-5.0); ANION GAP 12 (8-16); BLOOD UREA NITROGEN 7 MG/DL (7-18); BUN/CREATININE RATIO 6.9 (10.0-20.0); CALCIUM 9.1 MG/DL (8.5-10.1); CHLORIDE 103 MMOL/L (99-107); CREATINE KINASE 297 U/L (39-308); CREATININE 1.01 MG/DL (0.60-1.10); GLUCOSE 95 MG/DL (70-104); LIPASE 36 U/L (16-77); POTASSIUM 4.1 MMOL/L (3.5-5.1); SODIUM 144 MMOL/L (135-145); TOTAL CARBON DIOXIDE 29.3 MMOL/L (24-32); eCRCL 88 ML/MIN; eGFR 78 ML/MIN
[2025-03-15 13:37] LABS: ETHANOL < 10 MG/DL (<10)
[2025-03-15] MEDS ORDERED: TADA5TAB2 PO (14:09)
[2025-03-15 14:23] LABS: BILIRUBIN,URINE NEGATIVE (Neg); CLARITY,URINE CLEAR (Clear); COLOR,URINE YELLOW (Yellow); GLUCOSE, URINE NEGATIVE (Neg); KETONES,URINE 15 mg/dl (Neg); LEUKOCYTE ESTERASE ,URINE NEGATIVE (Neg); NITRITES, URINE NEGATIVE (Neg); OCCULT BLOOD,URINE NEGATIVE (Neg); PROTEIN,URINE NEGATIVE (Neg); UROBILINOGEN,URINE 0.2 E.U/dL (0.2-1.0)
[2025-03-15 14:28] LABS: UA COLLECTION TYPE NON-SPECIFIED
[2025-03-15 14:30] LABS: URINE AMPHETAMINE SCREEN NEGATIVE (Neg); URINE BARBITUATE SCREEN NEGATIVE (Neg); URINE BENZODIAZEPINES SCREEN NEGATIVE (Neg); URINE CANNABINOID SCREEN POSITIVE (Neg); URINE COCAINE SCREEN NEGATIVE (Neg); URINE METHADONE SCREEN NEGATIVE (Neg); URINE OPIATE SCREEN NEGATIVE (Neg); URINE PHENCYCLIDINE SCREEN NEGATIVE (Neg)
[2025-03-15 14:32] VITALS: BP 116/86; PULSE 67; RESP 16; TEMP 98.4; O2SAT 98
== END 2025-03-15 14:30 | disposition home or self-care (01) ==
LOC: ER 11:59
DX: T67.5XXA Heat exhaustion, unspecified, initial encounter (principal); R41.0 Disorientation, unspecified; R25.1 Tremor, unspecified; Z79.899 Other long term (current) drug therapy; X58.XXXA Exposure to other specified factors, initial encounter; Y93.89 Activity, other specified; Y92.89 Other specified places as the place of occurrence of the external cause; Y99.8 Other external cause status
CPT/HCPCS: 36415; 71045; 80048; 80305; 80320; 81003; 82550; 83690; 83735; 83874; 84145; 84484; 85025; 93005; 96360; 96361; 99285; J7030